=== PATIENT | male | born 1995 | race Caucasian/White ===

== ENCOUNTER 2019-11-30 11:05 | Emergency (ER) | payer MEDICAID ==
[~2019-11-30] VITALS: Ht 175.3 cm; Wt 101.6 kg
[2019-11-30 11:15] VITALS: Ht 175.3 cm; Wt 101.6 kg
[2019-11-30 12:03] VITALS: BP 122/66
== END 2019-11-30 12:03 | disposition home or self-care (01) ==
LOC: ED 11:05
DX: N48.89 Other specified disorders of penis (principal); K21.9 Gastro-esophageal reflux disease without esophagitis